=== PATIENT | female | born 1965 | race Two or more races ===

== ENCOUNTER 2021-06-09 07:14 | Day surgery (SDC) | payer OTHER ==
[~2021-06-09 07:14] MED LIST: B12 ACTIVE1000 MCG PO; BUSPAR PO; COZAAR25 MG PO; FAMOTIDINE40 MG PO; FUSION PLUS CA1 EACH PO; PROTONIX40 MG PO; SYNTHROID200 MCG PO; ZOCOR40 MG PO; ZOLOFT100 MG PO
== END 2021-06-09 13:55 | disposition home or self-care (01) ==
LOC: CIR.AMB 07:14
PROVIDERS: ATTEND Colon & Rectal Surgery
DX: C20 Malignant neoplasm of rectum (principal)
CPT/HCPCS: 36561; C1751